=== PATIENT | male | born 1990 | race American Indian/Alaskan Native ===

== ENCOUNTER 2018-04-24 13:28 | Emergency (ER) | payer MEDICAID ==
[2018-04-24 13:28] VITALS: BMI 24.8
[2018-04-24 14:25] VITALS: RESP 18
--- NOTE | 2018-04-24 14:51 | ED PDOC ---
Arrival/HPI - General Historian: Patient - History of Present Illness Time/Duration: 24 hours Symptom Onset: Sudden Symptom Course: Unchanged Quality: Other (pins and needles) Activities at Onset: Rest - General Chief Complaint: Lower Extremity Problem/Injury Time Seen by Provider: 04/24/18 13:29 - History of Present Illness Narrative History of Present Illness (Text): 04/24/18 14:56 CC: LE swelling HPI: Mr. Melo is a 28 year old male with a PMHx of HTN, HLD, borderline DM who presents with bilateral knee and feet swelling R>L that began this morning after waking up. Patient noticed a swelling that he has never experienced before that has hindered his mobility. He reports pins and needles when walking in his lower extremities. Patient reports a sports injury back in 2008 to the left knee for which he occasionally wears compression stockings while playing sports for support. Occasionally, patient will notice swelling above the stocking but that improves after removing the stocking. Patient also reports a transitive episode of blurry vision on Monday that resolved after a few minutes. Patient reports recent weight loss but denies chest pain, palpitations, shortness of breath, cough, fevers, chills, headaches, dizziness, sore throat, abdominal pain, nausea, vomiting, diarrhea, constipation, lower extremity rashes , recent travel, sick contacts, long car rides. PMHx: HTN, HLD PSHx: place placed in L jaw All: tomato Social: 4 cigs/day x ~10 years, on and off. 1 beer per day. Works at [employer] , on feet most of day Family Hx: Brother received renal transplant at age 32, unknown reason. DM and HTN in multiple members of family. Meds: Lisinopril 10 mg, unknown second drug "for heart" PCP: Dr. Lord ([facility]) ([facility]) Past Medical History - Provider Review Nursing Documentation Reviewed: Yes - Infectious Disease Hx of Infectious Diseases: None - Cardiac Hx Hypertension: Yes - Psychiatric Hx Substance Use: No - Surgical History Other/Comment: plate on the left jaw - Anesthesia Hx Anesthesia: Yes Hx Anesthesia Reactions: No Hx Malignant Hyperthermia: No Family/Social History - Physician Review Nursing Documentation Reviewed: Yes Family/Social History: Diabetes, Hypertension, CAD/PA Smoking Status: Light Smoker < 10 Cigarettes Daily Hx Alcohol Use: No Hx Substance Use: No Allergies/Home Meds Allergies/Adverse Reactions: Allergies tomato Allergy (Verified 04/24/18 14:13) ANGIOEDEMA Review of Systems - Physician Review All systems were reviewed & negative as marked: Yes (in HPI.) - Review of Systems Constitutional: Weight Change (weight loss of ). absent: Fatigue Physical Exam Vital Signs Reviewed: Yes Temperature: Afebrile Blood Pressure: Normal Pulse: Regular Respiratory Rate: Normal Appearance: Positive for: Well-Appearing, Non-Toxic, Comfortable Pain Distress: Mild Mental Status: Positive for: Alert and Oriented X 3 - Systems Exam Head: Present: Atraumatic, Normocephalic. No: Tenderness Pupils: Present: PERRL Extroacular Muscles: Present: EOMI Conjunctiva: Present: Normal Mouth: Present: Moist Mucous Membranes Neck: Present: Normal Range of Motion. No: Meningeal Signs, MIDLINE TENDERNESS Respiratory/Chest: Present: Clear to Auscultation, Good Air Exchange. No: Respiratory Distress, Accessory Muscle Use, Wheezes, Decreased Breath Sounds, Rales Cardiovascular: Present: Regular Rate and Rhythm, Normal S1, S2. No: Murmurs, Tachycardic, Bradycardic, Rub, Gallop Abdomen: Present: Normal Bowel Sounds. No: Tenderness, Distention, Peritoneal Signs, Rebound Back: Present: Normal Inspection, Pain with Leg Raise. No: CVA Tenderness, Midline Tenderness, Paraspinal Tenderness Upper Extremity: Present: Normal Inspection. No: Cyanosis, Edema Lower Extremity: Present: Edema (1+ in bilateral knees as well as in bilateral feet), NORMAL PULSES, Normal ROM (Pain with walking and plantarflexion of both feet), Swelling, Neurovascularly Intact. No: CALF TENDERNESS, Erythema, Deformity, Temperature Abnormalties Neurological: Present: GCS=15, CN II-XII Intact, Speech Normal Skin: Present: Warm, Dry, Normal Color. No: Rashes Psychiatric: Present: Alert, Oriented x 3, Normal Insight, Normal Concentration Vital Signs Temp Pulse Resp BP Pulse Ox 04/24/18 17:31 63 18 136/85 96 04/24/18 14:10 98.4 F 77 18 136/72 98 Medical Decision Making ED Course and Treatment: Patient Seen With Resident: In agreement with resident note. Patient was seen and evaluated with resident, came up with plan and treatment together. (Rodrigue Loya) 04/24/18 14:52 Impression: 28 year old male with a PMHx of HTN, HLD, borderline DM who presents with bilateral knee and feet swelling R>L that began this morning. Plan: CBC CMP BNP EKG Troponin UA 04/24/18 15:21 EKG reveals NSR @ 61 bpm, no ST elevations or T wave changes 04/24/18 16:25 Troponin negative F/u bilateral knee x-rays 2 views Total CK 930 CK-MB 3.7 BNP 11.1 Urinalysis negative except for urobilinogen 1.0 likelt 2/2 muscke breakdown 04/24/18 17:23 R knee - No demonstrated fracture or dislocation per official read L knee - Mild tricompartmental arthritic narrowing, advanced for age. No joint effusion per official read. 04/24/18 18:07 Pending call back from Dr. Trimble regarding elevated CK-MB in setting of low suspicion for cardiac etiology of swelling and pain. (Fito Lebron) - Lab Interpretations Lab Results: 04/24/18 15:37 04/24/18 15:37 Lab Results 04/24/18 16:58: Urine Color Yellow, Urine Appearance Clear, Urine pH 6.5, Ur Specific Lottie 1.010, Urine Protein Negative, Urine Glucose (UA) Negative, Urine Ketones Negative, Urine Blood Negative, Urine Nitrate Negative, Urine Bilirubin Negative, Urine Urobilinogen 1.0 H, Ur Leukocyte Esterase Negative 04/24/18 15:37: Sodium 144, Potassium 4.0, Chloride 106, Carbon Dioxide 27, Anion Gap 15, BUN 10, Creatinine 1.1, Est GFR ( Amer) > 60, Est GFR (Non- Af Amer) > 60, Random Glucose 97, Calcium 9.5, Total Bilirubin 0.4, AST 49, ALT 36, Alkaline Phosphatase 72, Total Creatine Kinase 930 H, CK-MB (CK-2) 3.7 H, CK -MB (CK-2) % Cancelled, Troponin I < 0.01, NT-Pro-B Natriuret Pep < 11.1, Total Protein 7.6, Albumin 4.2, Globulin 3.4, Albumin/Globulin Ratio 1.3, Triglycerides 105, Cholesterol 182, LDL Cholesterol Direct 115, HDL Cholesterol 41 04/24/18 15:37: WBC 6.0, RBC 4.55, Hgb 14.5, Hct 41.9 L, MCV 92.1, MCH 31.9, MCHC 34.6, RDW 14.3, Plt Count 240, MPV 9.7, Gran % 56.2, Lymph % (Auto) 34.4, Vernon % (Auto) 8.2 H, Eos % (Auto) 1.0 L, Baso % (Auto) 0.2, Gran # 3.37, Lymph # (Auto) 2.1, Vernon # (Auto) 0.5, Eos # (Auto) 0.1, Baso # (Auto) 0.01 - RAD Interpretation Radiology Orders: 04/24/18 16:07 KNEE RIGHT 2 VIEWS (AP & LAT) [RAD] Stat 04/24/18 16:30 KNEE LEFT 2 VIEWS (AP & LAT) [RAD] Stat - Medication Orders Current Medication Orders: Discontinued Medications Sodium Chloride (Sodium Chloride 0.9%) 1,000 mls @ 999 mls/hr IV .Q1H1M STA Stop: 04/24/18 17:41 Last Admin: 04/24/18 17:33 Dose: 999 mls/hr eMAR Start Stop Document 04/24/18 17:33 OCS (Rec: 04/24/18 17:33 OCS [id number]) Intravenous Solution Start Date 04/24/18 Start Time 17:33 End Date 04/24/18 End time 18:34 Total Infusion Time 61 Ibuprofen (Motrin Tab) 400 mg PO STAT STA Stop: 04/24/18 14:47 Last Admin: 04/24/18 15:41 Dose: 400 mg MAR Pain/Vitals Document 04/24/18 15:41 OCS (Rec: 04/24/18 15:42 OCS [id number]) Pain Reassessment Is This A Pain ReAssessment? Yes Sleep Is patient sleeping during reassessment? No Presence of Pain Presence of Pain Yes Pain Scale Used Pain Scale Used Numeric Location Left, Right or Bilateral Bilateral Upper or Lower Lower Pain Location Body Site Foot Description Constant Intensity 7 Scale Used Numeric Pain Behavior Irritability Aggravating Factors ADL's Disposition/Present on Arrival - Present on Arrival Any Indicators Present on Arrival: No History of DVT/PE: No History of Uncontrolled Diabetes: No Urinary Catheter: No History of Decub. Ulcer: No History Surgical Site Infection Following: None - Disposition Have Diagnosis and Disposition been Completed?: No Disposition Time: 18:09 - Disposition Diagnosis: Swelling of ankle joint Condition: GOOD Forms: [facility] ([place]onegas[place])
[2018-04-24 16:04] LABS: BASO # 0.01 K/mm3 (0.0-2.0); BASO % 0.2 % (0.0-3.0); EOS # 0.1 (0.0-0.7); GRAN # 3.37 (1.4-6.5); GRAN % 56.2 % (50.0-68.0); HEMOGLOBIN 14.5 g/dL (14.0-18.0); LYMPH # 2.1 (1.2-3.4); LYMPH % 34.4 % (22.0-35.0); MEAN CELL VOLUME 92.1 fl (80.0-105.0); MEAN CORPUSCULAR HEMOGLOBIN 31.9 pg (25.0-35.0); MEAN CORPUSCULAR HGB CONC 34.6 g/dl (31.0-37.0); MEAN PLATELET VOLUME 9.7 fl (7.0-11.0); MONO # 0.5 (0.1-0.6); MONO % 8.2 % (1.0-6.0); RBC 4.55 10^6/uL (3.5-6.1); RED CELL DISTRIBUTION WIDTH 14.3 % (11.5-14.5)
[2018-04-24 16:07] LABS: ALB/GLOB RATIO 1.3 (1.1-1.8); ALBUMIN 4.2 g/dL (3.0-4.8); ALT/SGPT 36 U/L (7-56); AST/SGOT 49 U/L (17-59); BLOOD UREA NITROGEN 10 mg/dL (7-21); CALCIUM 9.5 mg/dL (8.4-10.5); GFR NON-AFRICAN AMERICAN > 60; HDL CHOLESTEROL 41 mg/dL (29-60)
[2018-04-24 16:18] LABS: LDL CHOLESTEROL 115 mg/dL (0-129)
[2018-04-24 16:21] LABS: TROPONIN I < 0.01 ng/mL
[2018-04-24 16:32] LABS: B-TYPE NATRIURETIC PEPTIDE < 11.1 pg/mL (0-450); CK-MB 3.7 ng/mL (0.0-3.6)
[2018-04-24] MEDS ORDERED: Sodium Chloride 0.9% 1,000 ML IV STA (16:41)
--- NOTE | 2018-04-24 17:20 | RAD ---
Date of service: 04/24/2018 PROCEDURE: Right Knee Radiographs. HISTORY: pain COMPARISON: None. FINDINGS: BONES: No acute fractured. JOINTS: Unremarkable. JOINT EFFUSION: None. OTHER FINDINGS: None. IMPRESSION: No demonstrated fracture or dislocation.
--- NOTE | 2018-04-24 17:20 | RAD ---
Date of service: 04/24/2018 PROCEDURE: Left Knee Radiographs. HISTORY: Pain. COMPARISON: None. FINDINGS: BONES: No acute fracture. JOINTS: Mild tricompartmental narrowing with degenerative spurring. JOINT EFFUSION: None. OTHER FINDINGS: None. IMPRESSION: No demonstrated fracture or dislocation. Tricompartmental arthritic changes, advanced for age.
[2018-04-24 17:21] LABS: PH,URINE 6.5 (4.7-8.0); URINE BILIRUBIN NEGATIVE (NEGATIVE); URINE BLOOD NEGATIVE (NEGATIVE); URINE GLUCOSE (UA) NEGATIVE (NEGATIVE); URINE LEUKOCYTE ESTERASE NEGATIVE Leu/uL (NEGATIVE); URINE PROTEIN NEGATIVE mg/dL (<30 mg/dL)
[2018-04-24 17:26] LABS: URINE COLOR YELLOW (YELLOW)
[2018-04-24 17:27] LABS: URINE APPEARANCE CLEAR (CLEAR)
[2018-04-24 19:22] VITALS: BP 116/67; PULSE 67; TEMP 98.5; O2SAT 100
--- NOTE | 2018-04-25 10:19 | CARD ---
APPROVED REPORT Date of service: 04/24/2018 EKG Measurement Heart [id number] <Conclusion> Normal sinus rhythm with sinus arrhythmia Normal ECG
== END 2018-04-24 19:03 | disposition home or self-care (01) ==
LOC: ED 13:28
DX: M25.473 Effusion, unspecified ankle (principal); E78.5 Hyperlipidemia, unspecified; I10 Essential (primary) hypertension; F17.210 Nicotine dependence, cigarettes, uncomplicated
CPT/HCPCS: 73560; 80053; 80061; 81003; 82550; 82553; 83036; 83880; 84484; 85025; 93005; 96360; 99284; J7030